=== PATIENT | male | born 1950 | race Caucasian/White ===

== ENCOUNTER → 2019-07-09 | Outpatient (CLI) | payer BC ==
[~2019-07-09] MED LIST: ALBIPROI INH; ALDACTONE; AMIT50 PO; AMLO10 PO; AMOCLA875 PO; ANDROGEL1.25 GM TOP; ANORO ELLIPTA1 EACH INH; ASPI325; ASPI325EC PO; ASPI81CH; ASPI81CH PO; ATEN25; BENAML10/2 PO; BENAML20/5; BENAML20/5 PO; CARV25 PO; CARV6.25 PO; CIPRODEX UD; CLOP75 PO; COMBIVENT RESPIM4 GM INH; CYCL10; CYCL10 PO; Cialis5 MG PO; ESOM20 PO; EZET10-40 PO; EZETIMIBE-SIMV1 EACH; FINA5 PO; GABA300 PO; Hair, Skin & N1 EACH; IBUP800 PO; LOTREL PO; Lotrel 5-40 MG1 EACH PO; Lyrica75 MG PO; METF500 PO; METF500C PO; NITR.4SL; PANT40 PO; POLY500; QNASL8.7 GM; RANI150; RANI150 PO; ROSU10TA; SOLI5 PO; TADA10TA; TAMS.4ER; TAMS.4ER PO; TESTTP TOP; Triamcinolone A15 G3 TOP; VESICARE PO; VITB100; VYTORIN; VYTORIN PO; Viagra100 MG; ZANTAC PO; ZOLP10 PO; [UNRECOGNIZED DRUG - REMARK]
== END | disposition home or self-care (01) ==
LOC: LAB 12:40 → LAB SHORT 12:40
DX: M54.5 Low back pain (principal)
CPT/HCPCS: 87077; 87086; 87186

== ENCOUNTER → 2019-09-04 | Outpatient (CLI) | payer BC | DX: R35.0 Frequency of micturition (principal); R82.998 Other abnormal findings in urine ==

== ENCOUNTER → 2020-08-12 | Outpatient (CLI) | payer BC ==
[2020-08-13 12:38] LABS: C DIFFICILE DNA NEGATIVE (Negative)
== END ==
LOC: LAB SHORT 12:30
PROVIDERS: Family Medicine
DX: R19.7 Diarrhea, unspecified (principal)
CPT/HCPCS: 87015; 87045; 87046; 87205; 87493; 87899

== ENCOUNTER 2020-10-14 15:41 | Emergency (ER) | payer BC ==
[~2020-10-14] VITALS: Ht 177.8 cm; Wt 102.1 kg
[~2020-10-14 15:41] MED LIST changes: +EZETIMIBE-SIMV1 EAC4 PO; -EZETIMIBE-SIMV1 EACH
[2020-10-14 16:29] LABS: BASOPHILS ABSOLUTE AUTO 0.08 K/mm3 (0.00-0.23); BASOPHILS PERCENT AUTO 1 % (0-2); EOSINOPHILS ABSOLUTE AUTO 0.27 K/mm3 (0.00-0.68); EOSINOPHILS PERCENT AUTO 3 % (0-6); Hematocrit 44.1 % (37.0-53.0); Hemoglobin 14.7 g/dL (13.5-17.5); IMMATURE GRAN PERCENT AUTO 1 % (0-1); LYMPHOCYTES ABSOLUTE AUTO 2.93 K/mm3 (0.84-5.20); LYMPHOCYTES PERCENT AUTO 29 % (21-46); MONOCYTES ABSOLUTE AUTO 1.05 K/mm3 (0.16-1.47); MONOCYTES PERCENT AUTO 11 % (4-13); Mean Corpuscular HGB 30.1 pg (26.0-34.0); Mean Corpuscular HGB Conc 33.3 g/dL (31.5-36.5); Mean Corpuscular Volume 90 fL (80-100); NEUTROPHILS ABSOLUTE AUTO 5.54 K/mm3 (1.96-9.15); NEUTROPHILS PERCENT AUTO 56 % (41-73); RDW Coefficient Variation 13.7 % (11.7-14.2); Red Blood Cell Count 4.89 M/mm3 (4.30-5.90); White Blood Cell Count 9.97 K/mm3 (4.00-11.30)
[2020-10-14 16:36] LABS: Platelet Count 174 K/mm3 (150-400)
[2020-10-14 17:06] LABS: International Normalized Ratio 1.09; Prothrombin Time Results 11.7 Sec (9.7-11.5)
[2020-10-14 17:31] LABS: Troponin I <0.015 ng/mL (0.000-0.040)
[2020-10-14 17:34] LABS: Alanine Aminotransfer (ALT/SGP 34 U/L (12-78); Albumin, Blood 3.6 g/dL (3.4-5.0); Albumin/Globulin Ratio 0.9 (0.8-1.8); Alk Phos 72 U/L (50-136); Anion Gap 8 mmol/L (6-16); Aspartate Aminotrans (AST/SGOT 32 U/L (12-37); Bilirubin, Total 0.5 mg/dL (0.1-1.0); Blood Urea Nitrogen 13 mg/dL (8-24); Bun/Creatinine Ratio 13.9 (12.0-20.0); CO2, Blood 22 mmol/L (21-32); Calcium, Blood 9.5 mg/dL (8.5-10.1); Chloride, Blood 108 mmol/L (98-108); Creatinine, Blood 0.94 mg/dL (0.60-1.20); Globulin, Blood 4.1 g/dL (2.2-4.0); Glomerular Filtration Rate >60 (60-); Glucose, Blood 97 mg/dL (70-99); Potassium, Blood 4.2 mmol/L (3.5-5.5); Sodium, Blood 138 mmol/L (136-145); Total Protein, Blood 7.7 g/dL (6.4-8.2)
== END 2020-10-14 18:51 | disposition home or self-care (01) ==
LOC: ER 15:41
PROVIDERS: Physician Assistant
DX: R00.2 Palpitations (principal); J44.9 Chronic obstructive pulmonary disease, unspecified; E11.42 Type 2 diabetes mellitus with diabetic polyneuropathy; E78.5 Hyperlipidemia, unspecified; I10 Essential (primary) hypertension; K21.9 Gastro-esophageal reflux disease without esophagitis; F17.210 Nicotine dependence, cigarettes, uncomplicated; Z79.899 Other long term (current) drug therapy; Z79.82 Long term (current) use of aspirin
CPT/HCPCS: 36415; 71046; 80053; 83735; 83880; 84484; 85025; 85610; 93005; 93010; 99284-25

== ENCOUNTER 2021-01-26 19:18 | Emergency (ER) | payer BC ==
[~2021-01-26] VITALS: Ht 177.8 cm; Wt 102.1 kg
[2021-01-26 21:49] LABS: BASOPHILS ABSOLUTE AUTO 0.04 K/mm3 (0.00-0.23); BASOPHILS PERCENT AUTO 1 % (0-2); EOSINOPHILS ABSOLUTE AUTO 0.27 K/mm3 (0.00-0.68); EOSINOPHILS PERCENT AUTO 4 % (0-6); Hematocrit 44.3 % (37.0-53.0); Hemoglobin 15.2 g/dL (13.5-17.5); IMMATURE GRAN ABSOLUTE AUTO 0.02 K/mm3 (0.00-0.10); IMMATURE GRAN PERCENT AUTO 0 % (0-1); LYMPHOCYTES ABSOLUTE AUTO 1.82 K/mm3 (0.84-5.20); LYMPHOCYTES PERCENT AUTO 23 % (21-46); MONOCYTES ABSOLUTE AUTO 1.18 K/mm3 (0.16-1.47); MONOCYTES PERCENT AUTO 15 % (4-13); Mean Corpuscular HGB 30.6 pg (26.0-34.0); Mean Corpuscular HGB Conc 34.3 g/dL (31.5-36.5); Mean Corpuscular Volume 89 fL (80-100); Mean Platelet Volume 9.5 fL (9.1-12.4); NEUTROPHILS ABSOLUTE AUTO 4.46 K/mm3 (1.96-9.15); NEUTROPHILS PERCENT AUTO 57 % (41-73); Platelet Count 234 K/mm3 (150-400); RDW Coefficient Variation 13.8 % (11.7-14.2); RDW Standard Deviation 44.8 fL (35.1-46.3); Red Blood Cell Count 4.97 M/mm3 (4.30-5.90); White Blood Cell Count 7.79 K/mm3 (4.00-11.30)
[2021-01-26 22:13] LABS: Troponin I <0.015 ng/mL (0.000-0.040)
[2021-01-26 22:15] LABS: Alanine Aminotransfer (ALT/SGP 40 U/L (12-78); Albumin, Blood 3.4 g/dL (3.4-5.0); Albumin/Globulin Ratio 0.7 (0.8-1.8); Alk Phos 70 U/L (50-136); Anion Gap 6 mmol/L (6-16); Aspartate Aminotrans (AST/SGOT 32 U/L (12-37); Bilirubin, Total 0.3 mg/dL (0.1-1.0); Blood Urea Nitrogen 19 mg/dL (8-24); Bun/Creatinine Ratio 18.6 (12.0-20.0); CO2, Blood 25 mmol/L (21-32); Calcium, Blood 9.4 mg/dL (8.5-10.1); Chloride, Blood 106 mmol/L (98-108); Creatinine, Blood 1.02 mg/dL (0.60-1.20); Globulin, Blood 4.6 g/dL (2.2-4.0); Glomerular Filtration Rate >60 (60-); Glucose, Blood 168 mg/dL (70-99); Sodium, Blood 137 mmol/L (136-145)
[2021-01-26] MEDS ORDERED: TRELEGY ELLIPT1 EACH INH (23:15)
[2021-01-27] MEDS ORDERED: PRED20 PO (01:23)
[2021-01-27] MEDS ORDERED: AZIT250 PO (01:23)
== END 2021-01-27 01:53 | disposition home or self-care (01) ==
LOC: ER 19:18
PROVIDERS: Physician Assistant; Student in an Organized Health Care Education/Training Program
DX: J44.1 Chronic obstructive pulmonary disease with (acute) exacerbation (principal); J06.9 Acute upper respiratory infection, unspecified; E78.5 Hyperlipidemia, unspecified; E11.42 Type 2 diabetes mellitus with diabetic polyneuropathy; I10 Essential (primary) hypertension; I25.2 Old myocardial infarction; K21.9 Gastro-esophageal reflux disease without esophagitis; F17.210 Nicotine dependence, cigarettes, uncomplicated; Z79.82 Long term (current) use of aspirin; Z79.899 Other long term (current) drug therapy
CPT/HCPCS: 36415; 71046; 80053; 84484; 85025; 93005; 93010; 94640; 99285-25; A9270; J7512

== ENCOUNTER → 2021-03-23 | Outpatient (CLI) | payer BC ==
[~2021-03-23] MED LIST changes: +AMLODIPINE BES2.5 MG PO; +AZIT250 PO; +BENAZEPRIL HCL20 M4 PO; +CEFD300 PO; +HYDCHL25 PO; +PRED20 PO; +TRELEGY ELLIPT1 EACH INH; +Zithromax250 MG PO
== END | disposition home or self-care (01) ==
LOC: LAB 14:00 → LAB SHORT 14:00
DX: R35.0 Frequency of micturition (principal)
CPT/HCPCS: 87086

== ENCOUNTER 2021-03-24 19:24 | Emergency (ER) | payer BC ==
[~2021-03-24] VITALS: Ht 177.8 cm; Wt 102.1 kg
[~2021-03-24 19:24] MED LIST changes: -AMLODIPINE BES2.5 MG PO; -BENAZEPRIL HCL20 M4 PO; -CEFD300 PO; -HYDCHL25 PO; -Zithromax250 MG PO
[2021-03-24] MEDS ORDERED: AMLODIPINE BES2.5 MG PO (19:54)
[2021-03-24] MEDS ORDERED: HYDCHL25 PO (19:55)
[2021-03-24] MEDS ORDERED: BENAZEPRIL HCL20 M4 PO (19:55)
[2021-03-24 19:57] LABS: BASOPHILS ABSOLUTE AUTO 0.05 K/mm3 (0.00-0.23); BASOPHILS PERCENT AUTO 0 % (0-2); EOSINOPHILS ABSOLUTE AUTO 0.04 K/mm3 (0.00-0.68); EOSINOPHILS PERCENT AUTO 0 % (0-6); Hematocrit 38.5 % (37.0-53.0); Hemoglobin 12.9 g/dL (13.5-17.5); IMMATURE GRAN ABSOLUTE AUTO 0.07 K/mm3 (0.00-0.10); IMMATURE GRAN PERCENT AUTO 0 % (0-1); LYMPHOCYTES ABSOLUTE AUTO 1.82 K/mm3 (0.84-5.20); LYMPHOCYTES PERCENT AUTO 11 % (21-46); MONOCYTES ABSOLUTE AUTO 1.77 K/mm3 (0.16-1.47); MONOCYTES PERCENT AUTO 11 % (4-13); Mean Corpuscular HGB 30.3 pg (26.0-34.0); Mean Corpuscular HGB Conc 33.5 g/dL (31.5-36.5); Mean Corpuscular Volume 90 fL (80-100); Mean Platelet Volume 9.5 fL (9.1-12.4); NEUTROPHILS ABSOLUTE AUTO 12.75 K/mm3 (1.96-9.15); NEUTROPHILS PERCENT AUTO 77 % (41-73); Platelet Count 232 K/mm3 (150-400); RDW Coefficient Variation 13.8 % (11.7-14.2); RDW Standard Deviation 46.3 fL (35.1-46.3); Red Blood Cell Count 4.26 M/mm3 (4.30-5.90)
[2021-03-24 20:18] LABS: Troponin I <0.015 ng/mL (0.000-0.040)
[2021-03-24 20:26] LABS: Alanine Aminotransfer (ALT/SGP 26 U/L (12-78); Albumin, Blood 2.8 g/dL (3.4-5.0); Albumin/Globulin Ratio 0.7 (0.8-1.8); Alk Phos 57 U/L (50-136); Anion Gap 8 mmol/L (6-16); Aspartate Aminotrans (AST/SGOT 33 U/L (12-37); Bilirubin, Total 0.8 mg/dL (0.1-1.0); Blood Urea Nitrogen 20 mg/dL (8-24); Bun/Creatinine Ratio 19.4 (12.0-20.0); CO2, Blood 23 mmol/L (21-32); Calcium, Blood 8.8 mg/dL (8.5-10.1); Chloride, Blood 104 mmol/L (98-108); Creatinine, Blood 1.03 mg/dL (0.60-1.20); Globulin, Blood 4.1 g/dL (2.2-4.0); Glomerular Filtration Rate >60 (60-); Glucose, Blood 117 mg/dL (70-99); Potassium, Blood 4.4 mmol/L (3.5-5.5); Sodium, Blood 135 mmol/L (136-145); Total Protein, Blood 6.9 g/dL (6.4-8.2)
[2021-03-24 21:07] LABS: Influenza A, PCR NEGATIVE (NEGATIVE); Influenza B, PCR NEGATIVE (NEGATIVE); Resp Syncytial Virus, PCR NEGATIVE (NEGATIVE); SARS-Cov-2 (COVID-19) PCR, MMC NEGATIVE (NEGATIVE)
[2021-03-24] MEDS ORDERED: CEFD300 PO (21:36)
[2021-03-24] MEDS ORDERED: Zithromax250 MG PO (21:36)
== END 2021-03-24 22:03 | disposition home or self-care (01) ==
LOC: ER 19:24
PROVIDERS: Emergency Medicine
DX: J44.0 Chronic obstructive pulmonary disease with (acute) lower respiratory infection (principal); J18.9 Pneumonia, unspecified organism; I10 Essential (primary) hypertension; E78.5 Hyperlipidemia, unspecified; E11.42 Type 2 diabetes mellitus with diabetic polyneuropathy; N40.0 Benign prostatic hyperplasia without lower urinary tract symptoms; K21.9 Gastro-esophageal reflux disease without esophagitis; I25.2 Old myocardial infarction; D72.829 Elevated white blood cell count, unspecified; F17.200 Nicotine dependence, unspecified, uncomplicated; Z79.899 Other long term (current) drug therapy; Z79.02 Long term (current) use of antithrombotics/antiplatelets; Z79.82 Long term (current) use of aspirin
CPT/HCPCS: 0241U; 36415; 71045; 80053; 83605; 84145; 84484; 85025; 93005; 93010; 96365; 96368; 96375; 99285-25; J0456; J0696; J1885; J7050

== ENCOUNTER 2023-03-30 15:43 | Inpatient (IN) | payer BC, MEDICARE ==
[~2023-03-30] VITALS: Ht 177.8 cm; Wt 103.5 kg
[~2023-03-30 15:43] MED LIST changes: +AMLODIPINE BES2.5 MG PO; +BENAZEPRIL HCL20 M4 PO; +CEFD300 PO; +Carvedilol12.5 MG PO; +HYDCHL25 PO; -Hair, Skin & N1 EACH; +Hair, Skin & N1 EACH PO; +Zithromax250 MG PO
[2023-03-30] MEDS ORDERED: PRED20 PO (16:08)
[2023-03-30] MEDS ORDERED: LEVFLO500 PO (16:08)
[2023-03-30 17:00] LABS: BASOPHILS ABSOLUTE AUTO 0.01 K/mm3 (0.00-0.23); BASOPHILS PERCENT AUTO 0 % (0-2); EOSINOPHILS ABSOLUTE AUTO 0.01 K/mm3 (0.00-0.68); EOSINOPHILS PERCENT AUTO 0 % (0-6); Hematocrit 42.7 % (37.0-53.0); Hemoglobin 14.3 g/dL (13.5-17.5); IMMATURE GRAN ABSOLUTE AUTO 0.04 K/mm3 (0.00-0.10); IMMATURE GRAN PERCENT AUTO 0 % (0-1); LYMPHOCYTES ABSOLUTE AUTO 1.04 K/mm3 (0.84-5.20); LYMPHOCYTES PERCENT AUTO 11 % (21-46); MONOCYTES ABSOLUTE AUTO 0.19 K/mm3 (0.16-1.47); MONOCYTES PERCENT AUTO 2 % (4-13); Mean Corpuscular HGB 30.4 pg (26.0-34.0); Mean Corpuscular HGB Conc 33.5 g/dL (31.5-36.5); Mean Corpuscular Volume 91 fL (80-100); NEUTROPHILS ABSOLUTE AUTO 8.16 K/mm3 (1.96-9.15); NEUTROPHILS PERCENT AUTO 86 % (41-73); Platelet Count 211 K/mm3 (150-400); RDW Coefficient Variation 13.2 % (11.7-14.2); RDW Standard Deviation 43.7 fL (35.1-46.3); Red Blood Cell Count 4.71 M/mm3 (4.30-5.90); White Blood Cell Count 9.45 K/mm3 (4.00-11.30)
[2023-03-30 17:12] LABS: Albumin, Blood 3.3 g/dL (3.4-5.0); Albumin/Globulin Ratio 0.9 (0.8-1.8); Bilirubin, Total 0.3 mg/dL (0.1-1.0); Bun/Creatinine Ratio 24.6 (12.0-20.0); Calcium, Blood 9.4 mg/dL (8.5-10.1); Creatinine, Blood 0.98 mg/dL (0.60-1.20); Globulin, Blood 3.8 g/dL (2.2-4.0); Potassium, Blood 4.8 mmol/L (3.5-5.5); Total Protein, Blood 7.1 g/dL (6.4-8.2)
[2023-03-30 23:05] VITALS: BP 115/79
[2023-03-30 23:10] LABS: International Normalized Ratio 1.16; Prothrombin Time Results 12.1 Sec (9.7-11.5)
[2023-03-31] VITALS (14 sets, daily range): BP systolic 105–133; BP diastolic 54–88
[2023-03-31 01:47] LABS: Bun/Creatinine Ratio 26.5 (12.0-20.0); Calcium, Blood 8.9 mg/dL (8.5-10.1); Creatinine, Blood 0.91 mg/dL (0.60-1.20); Potassium, Blood 4.4 mmol/L (3.5-5.5)
--- NOTE | 2023-03-31 05:39 | NUR ---
SECOND HAND SUMMARY THE PT HAS REMAINED ALERT AND ORIENTED THIS SHIFT COMMUNICATING [facility] W STAFF. THE PT HAS DENIED ANY CHEST PAIN OR PRESSURE THIS SHIFT. PT'S MONITOR HAS SHOWN AFIB 90'-120 W OCCASIONAL VERY BRIEF RUNS UP TO 140. PT'S BP WNL AND STABLE. SPO2 >90% ON RM AIR. PT ON HEPARIN GTT UNINTERUPTED ALL SHIFT. PT USING THE CALL LIGHT TO MAKE NEEDS KNOW. PT SLEEPING COMFORTABLY FOR MOST OF THE NIGHT ON BED IN LOWEST POSITION. WILL REPORT TO ONCOMING RN. PT NPO SINCE MIDNIGHT FOR POSIIBLE PROCEDURES EXCEPT FOR SMALL DRINK OF WATER W 0600 MEDS. WILL REPORT TO ONCOMING RN.
--- NOTE | 2023-03-31 18:11 | NUR ---
SHIFT SUMMARY PT A&OX4, ABLE TO MAKE NEEDS KNOWN. SP02>90% ON RA, DENIES SOB. TELEMETRY SHOWS AFIB, HR 90'S-120'S. C/O OF CP 1 TO 4 DEPENDING ON EXERTION. HEPARIN DC'D THIS AM. MD BAUER IN ROOM THIS AM TO CONSULT. PT EDUCATED ON MEDICATION CHANGES. ECHO IN ROOM, SEE RESULTS. PT TO COLD MEAT COOK WITH MD BAUER FOR CESAR/CARDIOVERSION THIS AFTERNOON. CARDIOVERSION UNSUCCESSFUL, PT REMAINS IN AFIB. AMIO GTT STARTED PER EMAR, CURRENTLY INFUSING. USES URINAL TO VOID. CRISTINA HU, IN ROOM MOST OF SHIFT. PT SITTING UP IN BED EATING DINNER. CALL LIGHT IN REACH.
--- NOTE | 2023-03-31 21:21 | NUR ---
ASSUMPTION OF CARE AFTER RECEIVING REPORT FROM CITLALLI HINTON, THIS RN ASSUMED CARE AT APPROX 1915. PATIENT IS ALERT AND ORIENTED X4. FAMILY AT BEDSIDE DURING INITIAL ENCOUNTER. TELEMETRY SHOWING AFIB 80's-90's. AMIO GTT INFUSING PER EMAR. SWITCHED FROM 33.3 TO 16.7ML/HR. BP STABLE. REPORTS CHEST PAIN 05/01 AT THIS TIME. ON ROOM AIR, SATS >90%. DENIES SHORTNESS OF BREATH AT REST. PATIENT INDEPENDENT IN ROOM, USES CALL LIGHT NEEDED. VOIDING. CALL LIGHT IN REACH.
[2023-04-01] VITALS (12 sets, daily range): BP systolic 102–137; BP diastolic 49–100
[2023-04-01 04:00] LABS: BASOPHILS ABSOLUTE AUTO 0.06 K/mm3 (0.00-0.23); BASOPHILS PERCENT AUTO 1 % (0-2); EOSINOPHILS ABSOLUTE AUTO 0.17 K/mm3 (0.00-0.68); EOSINOPHILS PERCENT AUTO 2 % (0-6); Hematocrit 42.5 % (37.0-53.0); Hemoglobin 14.2 g/dL (13.5-17.5); IMMATURE GRAN ABSOLUTE AUTO 0.03 K/mm3 (0.00-0.10); IMMATURE GRAN PERCENT AUTO 0 % (0-1); LYMPHOCYTES ABSOLUTE AUTO 2.61 K/mm3 (0.84-5.20); LYMPHOCYTES PERCENT AUTO 31 % (21-46); MONOCYTES ABSOLUTE AUTO 0.95 K/mm3 (0.16-1.47); MONOCYTES PERCENT AUTO 11 % (4-13); Mean Corpuscular HGB 30.3 pg (26.0-34.0); Mean Corpuscular HGB Conc 33.4 g/dL (31.5-36.5); Mean Corpuscular Volume 91 fL (80-100); Mean Platelet Volume 9.6 fL (9.1-12.4); NEUTROPHILS ABSOLUTE AUTO 4.63 K/mm3 (1.96-9.15); NEUTROPHILS PERCENT AUTO 55 % (41-73); Platelet Count 197 K/mm3 (150-400); RDW Coefficient Variation 13.8 % (11.7-14.2); RDW Standard Deviation 44.7 fL (35.1-46.3); Red Blood Cell Count 4.69 M/mm3 (4.30-5.90); White Blood Cell Count 8.45 K/mm3 (4.00-11.30)
[2023-04-01 04:29] LABS: Bun/Creatinine Ratio 23.1 (12.0-20.0); Calcium, Blood 9.2 mg/dL (8.5-10.1); Creatinine, Blood 1.08 mg/dL (0.60-1.20); Potassium, Blood 4.4 mmol/L (3.5-5.5)
--- NOTE | 2023-04-01 05:17 | NUR ---
SHIFT SUMMARY NO ACUTE CHANGES SINCE PREVIOUS ASSUMPTION OF CARE NOTE. PATIENT SLEPT THROUGHOUT SHIFT, EASILY AROUSABLE TO VERBAL STIMULI. VSS. TELEMETRY CONTINUING TO SHOW AFIB 80's-90's. AMIO GTT INFUSING AT 16.7ML/HR. BP STABLE. PLACED ON 2L VIA NASAL CANNULA WHILE SLEEPING DOES DESAT TO 88-90% ON ROOM AIR. CURRENT SAT >92%. USES URINAL INDEPENDENTLY. VOIDING. NO BM THIS SHIFT. REPOSITIONING HIMSELF IN BED WITHOUT ASSIST. CALL LIGHT IN REACH. WILL REPORT TO ONCOMING RN.
--- NOTE | 2023-04-01 16:25 | NUR ---
Shift Summary Pt a&ox4. Sp02>90% on ra. Telemetry shows Afib, hr mostly 80's-90's, touches 110's with ambulation. Pt c/o of 1/10 cp/tightness. Amioderone infused this shift, off this afternoon. Entresto started this afternoon per emar. MD Major in room this am to assess. Plan for NPO at midnight for cardioversion tomorrow. Pt c/o of chronic back pain. States takes advil daily. Call placed to MD Washburn. MD Washburn w/ orders for Advil. Pt used urinal to void. No bm this shift. Pt ambulated around u hallways multiple times during shift with daughter, Isa. Pt able to shower this am. Powerglide placed in RONALD. Pt sitting in chair, call light in reach.
--- NOTE | 2023-04-01 21:58 | NUR ---
ASSUMPTION OF CARE AFTER RECEIVING REPORT FROM CILTALLI HINTON, THIS RN ASSUMED CARE AT APPROX 1915. PATIENT ALERT, SITTING UP IN BED WATCHING TV. IS ALERT AND ORIENTED X4. COOPERATIVE WITH CARE, RECEPTIVE TO EDUCATION. ABLE TO COMMUNICATE NEEDS EFFECTIVELY. TELEMETRY SHOWING AFIB 80's-90's. BP STABLE. REPORTS CHEST PAIN 05/01. CURRENTLY ON ROOM AIR, SATS >92%. WEARS 2L VIA NASAL CANNULA WHILE SLEEPING. REPORTS NO SHORTNESS OF BREATH WHILE AT REST. RR 18-22. IS A STAND BY ASSIST IN ROOM. USES URINAL INDEPENDENTLY. CALL LIGHT IN REACH.
[2023-04-02] VITALS (15 sets, daily range): BP systolic 92–127; BP diastolic 58–83
[2023-04-02 03:50] LABS: BASOPHILS ABSOLUTE AUTO 0.05 K/mm3 (0.00-0.23); BASOPHILS PERCENT AUTO 1 % (0-2); EOSINOPHILS ABSOLUTE AUTO 0.29 K/mm3 (0.00-0.68); EOSINOPHILS PERCENT AUTO 3 % (0-6); Hemoglobin 15.1 g/dL (13.5-17.5); IMMATURE GRAN ABSOLUTE AUTO 0.03 K/mm3 (0.00-0.10); IMMATURE GRAN PERCENT AUTO 0 % (0-1); LYMPHOCYTES ABSOLUTE AUTO 1.91 K/mm3 (0.84-5.20); LYMPHOCYTES PERCENT AUTO 22 % (21-46); MONOCYTES ABSOLUTE AUTO 1.22 K/mm3 (0.16-1.47); MONOCYTES PERCENT AUTO 14 % (4-13); Mean Corpuscular HGB 29.8 pg (26.0-34.0); Mean Corpuscular HGB Conc 33.6 g/dL (31.5-36.5); Mean Corpuscular Volume 89 fL (80-100); Mean Platelet Volume 9.7 fL (9.1-12.4); NEUTROPHILS ABSOLUTE AUTO 5.29 K/mm3 (1.96-9.15); NEUTROPHILS PERCENT AUTO 60 % (41-73); Platelet Count 216 K/mm3 (150-400); RDW Coefficient Variation 13.4 % (11.7-14.2); RDW Standard Deviation 43.6 fL (35.1-46.3); Red Blood Cell Count 5.06 M/mm3 (4.30-5.90); White Blood Cell Count 8.79 K/mm3 (4.00-11.30)
[2023-04-02 04:09] LABS: Bun/Creatinine Ratio 24.6 (12.0-20.0); Calcium, Blood 9.4 mg/dL (8.5-10.1); Creatinine, Blood 1.18 mg/dL (0.60-1.20); Magnesium, Blood 2.1 mg/dL (1.6-2.4); Potassium, Blood 4.2 mmol/L (3.5-5.5)
--- NOTE | 2023-04-02 04:13 | NUR ---
SHIFT SUMMARY NO ACUTE CHANGES SINCE ASSUMPTION OF CARE NOTE. PATIENT SLEPT THROUGHOUT SHIFT, EASILY AROUSABLE TO VERBAL STIMULI. ABLE TO REPOSITION HIMSELF IN BED INDEPENDENTLY. TELEMETRY SHOWING AFIB 80's-90's. BP STABLE. HAS BEEN NPO SINCE 2329 FOR PLANNED CARDIOVERSION TODAY. NO INCREASE IN CHEST PAIN, REMAINS 05/01. ORDERED EKG PERFORMED, LOCATED IN CHART. PLACED ON 2L VIA NASAL CANNULA WHILE SLEEPING, SATS >92%. USES URINAL INDEPENDENTLY. VOIDING. NO BM THIS SHIFT. CALL LIGHT IN REACH. WILL REPORT TO ONCOMING RN.
--- NOTE | 2023-04-02 14:16 | NUR ---
PT TOLERATED CARDIOVERSION WELL. PT DENIES CP. CALL LIGHT IN REACH. PT ON ROOM AIR NOW. DR BAUER RETURNED TO ROOM POST CARDIOVERSION TO TALK WITH PT.
[2023-04-02] MEDS ORDERED: AMIODARONE HCL400 M2 PO (15:26)
[2023-04-02] MEDS ORDERED: PACERONE PO (15:26)
[2023-04-02] MEDS ORDERED: JARDIANCE10 MG PO (15:27)
[2023-04-02] MEDS ORDERED: ATOR10 PO (15:27)
[2023-04-02] MEDS ORDERED: Amiodarone HCl200 MG PO (15:27)
[2023-04-02] MEDS ORDERED: XARELTO20 MG PO (15:28)
[2023-04-02] MEDS ORDERED: EZET10 PO (15:28)
[2023-04-02] MEDS ORDERED: ENTRESTO 24 MG1 EACH PO (15:28)
== END 2023-04-02 18:00 | disposition home or self-care (01) | DRG 308 ==
LOC: ER 15:43 → PCU 15:44
PROVIDERS: Hospitalist; Internal Medicine Cardiovascular Disease; Physician Assistant; ADMIT Internal Medicine
PROC: 3E02340 Introduction of Influenza Vaccine into Muscle, Percutaneous Approach (ICD-10-PCS; 2023-03-30)
PROC: 5A2204Z Restoration of Cardiac Rhythm, Single (ICD-10-PCS; principal; 2023-03-31)
DX: I48.91 Unspecified atrial fibrillation (principal); I50.23 Acute on chronic systolic (congestive) heart failure; J18.9 Pneumonia, unspecified organism; J44.0 Chronic obstructive pulmonary disease with (acute) lower respiratory infection; I25.10 Atherosclerotic heart disease of native coronary artery without angina pectoris; F17.210 Nicotine dependence, cigarettes, uncomplicated; E09.42 Drug or chemical induced diabetes mellitus with neurological complications with diabetic polyneuropathy; T38.0X5A Adverse effect of glucocorticoids and synthetic analogues, initial encounter; E66.9 Obesity, unspecified; E78.5 Hyperlipidemia, unspecified; N40.0 Benign prostatic hyperplasia without lower urinary tract symptoms; I11.0 Hypertensive heart disease with heart failure; K21.9 Gastro-esophageal reflux disease without esophagitis; R07.89 Other chest pain; I70.0 Atherosclerosis of aorta; R19.7 Diarrhea, unspecified; F15.11 Other stimulant abuse, in remission; I25.2 Old myocardial infarction; Z71.6 Tobacco abuse counseling; Z95.5 Presence of coronary angioplasty implant and graft; Z68.33 Body mass index [BMI] 33.0-33.9, adult; Z85.828 Personal history of other malignant neoplasm of skin; Z23 Encounter for immunization
CPT/HCPCS: 36415; 71045; 80048; 80053; 82947; 83036; 83735; 83880; 84443; 84484; 85025; 85610; 85730; 92960; 93005; 93010; 93312; 93325; 94640; 94664; 94760; 94762; 96365; 96366; 96375; 96376; 99285-25; A9270; C8929; G0008; G0378; J0282; J1644; J2405; J2704; J7030; J7060; Q2036; Q9957

== ENCOUNTER 2023-04-17 14:11 | Emergency (ER) | payer BC ==
[~2023-04-17] VITALS: Ht 177.8 cm; Wt 102.1 kg
[~2023-04-17 14:11] MED LIST changes: +AMIODARONE HCL400 M2 PO; +ATOR10 PO; +Amiodarone HCl200 MG PO; +ENTRESTO 24 MG1 EACH PO; +EZET10 PO; +JARDIANCE10 MG PO; +LEVFLO500 PO; +PACERONE PO; +XARELTO20 MG PO
[2023-04-17 14:15] VITALS: BP 157/57
[2023-04-17 14:46] LABS: BASOPHILS ABSOLUTE AUTO 0.04 K/mm3 (0.00-0.23); BASOPHILS PERCENT AUTO 1 % (0-2); EOSINOPHILS ABSOLUTE AUTO 0.16 K/mm3 (0.00-0.68); EOSINOPHILS PERCENT AUTO 2 % (0-6); Hematocrit 44.7 % (37.0-53.0); IMMATURE GRAN ABSOLUTE AUTO 0.02 K/mm3 (0.00-0.10); IMMATURE GRAN PERCENT AUTO 0 % (0-1); LYMPHOCYTES ABSOLUTE AUTO 1.96 K/mm3 (0.84-5.20); LYMPHOCYTES PERCENT AUTO 25 % (21-46); MONOCYTES ABSOLUTE AUTO 1.03 K/mm3 (0.16-1.47); MONOCYTES PERCENT AUTO 13 % (4-13); Mean Corpuscular HGB 30.1 pg (26.0-34.0); Mean Corpuscular HGB Conc 33.6 g/dL (31.5-36.5); Mean Corpuscular Volume 90 fL (80-100); Mean Platelet Volume 9.7 fL (9.1-12.4); NEUTROPHILS ABSOLUTE AUTO 4.59 K/mm3 (1.96-9.15); NEUTROPHILS PERCENT AUTO 59 % (41-73); Platelet Count 185 K/mm3 (150-400); RDW Coefficient Variation 13.9 % (11.7-14.2); RDW Standard Deviation 45.2 fL (35.1-46.3); Red Blood Cell Count 4.99 M/mm3 (4.30-5.90)
[2023-04-17 15:12] LABS: Albumin, Blood 3.3 g/dL (3.4-5.0); Albumin/Globulin Ratio 0.8 (0.8-1.8); Bilirubin, Total 0.3 mg/dL (0.1-1.0); Bun/Creatinine Ratio 21.1 (12.0-20.0); Calcium, Blood 9.2 mg/dL (8.5-10.1); Creatinine, Blood 0.95 mg/dL (0.60-1.20); Potassium, Blood 4.9 mmol/L (3.5-5.5); Total Protein, Blood 7.3 g/dL (6.4-8.2)
== END 2023-04-17 16:29 | disposition home or self-care (01) ==
LOC: ER 14:11
PROVIDERS: Student in an Organized Health Care Education/Training Program
DX: R07.89 Other chest pain (principal); Z79.899 Other long term (current) drug therapy; J44.9 Chronic obstructive pulmonary disease, unspecified; E78.5 Hyperlipidemia, unspecified; E11.9 Type 2 diabetes mellitus without complications; K21.9 Gastro-esophageal reflux disease without esophagitis; I10 Essential (primary) hypertension; I25.2 Old myocardial infarction; Z87.891 Personal history of nicotine dependence
CPT/HCPCS: 71046; 80053; 83880; 84484; 85025; 93005; 93010; 99285-25

== ENCOUNTER 2023-08-29 20:12 | Emergency (ER) | payer BC ==
[~2023-08-29] VITALS: Ht 177.8 cm; Wt 104.3 kg
[2023-08-29 21:15] VITALS: BP 139/49
== END 2023-08-29 21:20 | disposition home or self-care (01) ==
LOC: ER 20:12
DX: R07.9 Chest pain, unspecified (principal); Z79.899 Other long term (current) drug therapy; F17.210 Nicotine dependence, cigarettes, uncomplicated; J44.9 Chronic obstructive pulmonary disease, unspecified; E78.5 Hyperlipidemia, unspecified; E11.40 Type 2 diabetes mellitus with diabetic neuropathy, unspecified; I11.0 Hypertensive heart disease with heart failure; K21.9 Gastro-esophageal reflux disease without esophagitis; I50.9 Heart failure, unspecified

== ENCOUNTER 2023-12-15 10:54 | Emergency (ER) | payer BC ==
[~2023-12-15] VITALS: Ht 177.8 cm; Wt 102.1 kg
[2023-12-15] MEDS ORDERED: Nitrofurantoin100 M1 PO (11:16)
[2023-12-15 11:23] LABS: BASOPHILS ABSOLUTE AUTO 0.03 K/mm3 (0.00-0.23); BASOPHILS PERCENT AUTO 0 % (0-2); EOSINOPHILS ABSOLUTE AUTO 0.39 K/mm3 (0.00-0.68); EOSINOPHILS PERCENT AUTO 4 % (0-6); Hematocrit 46.2 % (37.0-53.0); Hemoglobin 15.1 g/dL (13.5-17.5); IMMATURE GRAN ABSOLUTE AUTO 0.02 K/mm3 (0.00-0.10); IMMATURE GRAN PERCENT AUTO 0 % (0-1); LYMPHOCYTES ABSOLUTE AUTO 1.51 K/mm3 (0.84-5.20); LYMPHOCYTES PERCENT AUTO 17 % (21-46); MONOCYTES PERCENT AUTO 9 % (4-13); Mean Corpuscular HGB Conc 32.7 g/dL (31.5-36.5); Mean Corpuscular Volume 86 fL (80-100); Mean Platelet Volume 9.2 fL (9.1-12.4); NEUTROPHILS ABSOLUTE AUTO 6.21 K/mm3 (1.96-9.15); NEUTROPHILS PERCENT AUTO 69 % (41-73); Platelet Count 219 K/mm3 (150-400); RDW Coefficient Variation 16.1 % (11.7-14.2); RDW Standard Deviation 50.1 fL (35.1-46.3); Red Blood Cell Count 5.39 M/mm3 (4.30-5.90); White Blood Cell Count 8.96 K/mm3 (4.00-11.30)
[2023-12-15 11:43] LABS: Albumin/Globulin Ratio 0.7 (0.8-1.8); Bilirubin, Total 0.5 mg/dL (0.1-1.0); Bun/Creatinine Ratio 16.2 (12.0-20.0); Creatinine, Blood 1.05 mg/dL (0.60-1.20); Globulin, Blood 4.3 g/dL (2.2-4.0); Potassium, Blood 4.2 mmol/L (3.5-5.5); Total Protein, Blood 7.3 g/dL (6.4-8.2)
[2023-12-15 11:53] LABS: Influenza A, PCR NEGATIVE (NEGATIVE); Influenza B, PCR NEGATIVE (NEGATIVE); Resp Syncytial Virus, PCR NEGATIVE (NEGATIVE); SARS-Cov-2 (COVID-19) PCR, MMC NEGATIVE (NEGATIVE)
[2023-12-15] MEDS ORDERED: MethylPREDNISolone Sod Succ 125 MG Vial IV ONE (12:30)
[2023-12-15] MEDS ORDERED: Ipratropium/Albuterol SulF 2.5-0.5MG/3 ML Amp INH ONE ×2 (12:30)
[2023-12-15 15:00] VITALS: BP 146/61
== END 2023-12-15 15:07 | disposition home or self-care (01) ==
LOC: ER 10:54
PROVIDERS: Physician Assistant
DX: J44.1 Chronic obstructive pulmonary disease with (acute) exacerbation (principal); E11.9 Type 2 diabetes mellitus without complications; E78.5 Hyperlipidemia, unspecified; K21.9 Gastro-esophageal reflux disease without esophagitis; I11.0 Hypertensive heart disease with heart failure; I50.9 Heart failure, unspecified; F17.210 Nicotine dependence, cigarettes, uncomplicated; Z79.51 Long term (current) use of inhaled steroids; Z79.02 Long term (current) use of antithrombotics/antiplatelets; Z79.899 Other long term (current) drug therapy
CPT/HCPCS: 0241U; 71046; 80053; 84484; 85025; 94640; 94664; 96374; 99285-25; J2919

== ENCOUNTER → 2024-02-03 | Outpatient (CLI) | payer BC ==
[~2024-02-03] MED LIST changes: +Nitrofurantoin100 M1 PO
== END ==
LOC: LAB 21:00 → LAB SHORT 21:00
DX: R05.9 Cough, unspecified (principal)
CPT/HCPCS: 87070; 87077; 87186; 87205

== ENCOUNTER 2024-03-29 12:20 | Emergency (ER) | payer BC ==
[~2024-03-29] VITALS: Ht 177.8 cm; Wt 99.8 kg
[2024-03-29 12:53] LABS: BASOPHILS ABSOLUTE AUTO 0.04 K/mm3 (0.00-0.23); BASOPHILS PERCENT AUTO 1 % (0-2); EOSINOPHILS ABSOLUTE AUTO 0.18 K/mm3 (0.00-0.68); EOSINOPHILS PERCENT AUTO 2 % (0-6); Hematocrit 49.6 % (37.0-53.0); Hemoglobin 16.3 g/dL (13.5-17.5); IMMATURE GRAN ABSOLUTE AUTO 0.03 K/mm3 (0.00-0.10); IMMATURE GRAN PERCENT AUTO 0 % (0-1); LYMPHOCYTES ABSOLUTE AUTO 2.22 K/mm3 (0.84-5.20); LYMPHOCYTES PERCENT AUTO 25 % (21-46); MONOCYTES ABSOLUTE AUTO 0.96 K/mm3 (0.16-1.47); MONOCYTES PERCENT AUTO 11 % (4-13); Mean Corpuscular HGB 29.1 pg (26.0-34.0); Mean Corpuscular HGB Conc 32.9 g/dL (31.5-36.5); Mean Corpuscular Volume 89 fL (80-100); Mean Platelet Volume 9.4 fL (9.1-12.4); NEUTROPHILS PERCENT AUTO 61 % (41-73); Platelet Count 235 K/mm3 (150-400); RDW Coefficient Variation 14.5 % (11.7-14.2); White Blood Cell Count 8.73 K/mm3 (4.00-11.30)
[2024-03-29 13:13] LABS: Albumin/Globulin Ratio 0.8 (0.8-1.8); Bilirubin, Total 0.5 mg/dL (0.1-1.0); Bun/Creatinine Ratio 14.1 (12.0-20.0); Calcium, Blood 9.3 mg/dL (8.5-10.1); Creatinine, Blood 0.99 mg/dL (0.60-1.20); Potassium, Blood 4.5 mmol/L (3.5-5.5)
[2024-03-29 15:22] VITALS: BP 104/63
== END 2024-03-29 15:24 | disposition home or self-care (01) ==
LOC: ER 12:20
PROVIDERS: Emergency Medicine
DX: I48.0 Paroxysmal atrial fibrillation (principal); J44.9 Chronic obstructive pulmonary disease, unspecified; E11.9 Type 2 diabetes mellitus without complications; I11.0 Hypertensive heart disease with heart failure; I50.9 Heart failure, unspecified; I25.2 Old myocardial infarction; N40.0 Benign prostatic hyperplasia without lower urinary tract symptoms; E78.5 Hyperlipidemia, unspecified; K21.9 Gastro-esophageal reflux disease without esophagitis; F17.210 Nicotine dependence, cigarettes, uncomplicated; Z95.5 Presence of coronary angioplasty implant and graft; Z79.899 Other long term (current) drug therapy; Z79.01 Long term (current) use of anticoagulants
CPT/HCPCS: 80053; 83690; 84484; 85025; 93005; 93010; 99285-25

== ENCOUNTER 2024-07-14 10:47 | Emergency (ER) | payer MEDICARE ==
[~2024-07-14] VITALS: Ht 177.8 cm; Wt 102.5 kg
[2024-07-14 11:10] VITALS: BP 141/77
== END 2024-07-14 13:07 | disposition home or self-care (01) ==
LOC: ER 10:47
DX: S46.111A Strain of muscle, fascia and tendon of long head of biceps, right arm, initial encounter (principal); X58.XXXA Exposure to other specified factors, initial encounter; I11.0 Hypertensive heart disease with heart failure; I50.9 Heart failure, unspecified; I25.2 Old myocardial infarction; J44.9 Chronic obstructive pulmonary disease, unspecified; E11.9 Type 2 diabetes mellitus without complications; K21.9 Gastro-esophageal reflux disease without esophagitis; E78.5 Hyperlipidemia, unspecified; F17.210 Nicotine dependence, cigarettes, uncomplicated; Z79.899 Other long term (current) drug therapy; Z79.01 Long term (current) use of anticoagulants
CPT/HCPCS: 76882; 93971; 99283-25

== ENCOUNTER → 2024-07-27 | Outpatient (CLI) | payer MEDICARE | LOC: LAB 12:15 → LAB SHORT 12:15 | DX: B35.1 Tinea unguium (principal) | CPT/HCPCS: 87102; 87106; 87186 ==

== ENCOUNTER 2025-03-30 20:13 | Emergency (ER) | payer MEDICARE ==
[~2025-03-30] VITALS: Ht 177.8 cm; Wt 102.1 kg
[2025-03-30 20:48] LABS: BASOPHILS ABSOLUTE AUTO 0.04 K/mm3 (0.00-0.23); BASOPHILS PERCENT AUTO 1 % (0-2); EOSINOPHILS ABSOLUTE AUTO 0.24 K/mm3 (0.00-0.68); EOSINOPHILS PERCENT AUTO 3 % (0-6); Hematocrit 45.6 % (37.0-53.0); Hemoglobin 15.3 g/dL (13.5-17.5); IMMATURE GRAN ABSOLUTE AUTO 0.02 K/mm3 (0.00-0.10); IMMATURE GRAN PERCENT AUTO 0 % (0-1); LYMPHOCYTES ABSOLUTE AUTO 1.39 K/mm3 (0.84-5.20); LYMPHOCYTES PERCENT AUTO 19 % (21-46); MONOCYTES ABSOLUTE AUTO 0.97 K/mm3 (0.16-1.47); MONOCYTES PERCENT AUTO 13 % (4-13); Mean Corpuscular HGB Conc 33.6 g/dL (31.5-36.5); Mean Corpuscular Volume 93 fL (80-100); NEUTROPHILS ABSOLUTE AUTO 4.59 K/mm3 (1.96-9.15); NEUTROPHILS PERCENT AUTO 63 % (41-73); NRBC ABSOLUTE 0.00 K/mm3 (0.00-0.02); NRBC Auto 0.0 /100 WBC (0.0-0.2); Platelet Count 210 K/mm3 (150-400); RDW Coefficient Variation 13.2 % (11.7-14.2); RDW Standard Deviation 45.3 fL (35.1-46.3)
[2025-03-30 21:14] LABS: Alanine Aminotransfer (ALT/SGP 31.0 U/L (12-78); Albumin, Blood 3.3 g/dL (3.4-5.0); Albumin/Globulin Ratio 0.8 (0.8-1.8); Anion Gap 12.0 mmol/L (3-11); Aspartate Aminotrans (AST/SGOT 27.0 U/L (12-37); Bilirubin, Total 0.4 mg/dL (0.1-1.0); Blood Urea Nitrogen 27.0 mg/dL (8-24); CO2, Blood 20.0 mmol/L (21-32); Calcium, Blood 9.2 mg/dL (8.5-10.1); Chloride, Blood 108.0 mmol/L (98-108); Creatinine, Blood 1.08 mg/dL (0.60-1.20); Globulin, Blood 4.4 g/dL (2.2-4.0); Glucose, Blood 164.0 mg/dL (70-99); Potassium, Blood 4.3 mmol/L (3.5-5.5); Sodium, Blood 136.0 mmol/L (136-145); Total Protein, Blood 7.7 g/dL (6.4-8.2)
[2025-03-31 00:01] VITALS: BP 130/53
== END 2025-03-31 00:15 | disposition home or self-care (01) ==
LOC: ER 20:13
PROVIDERS: Emergency Medicine
DX: R07.89 Other chest pain (principal); J44.9 Chronic obstructive pulmonary disease, unspecified; E78.5 Hyperlipidemia, unspecified; E11.42 Type 2 diabetes mellitus with diabetic polyneuropathy; I11.0 Hypertensive heart disease with heart failure; I50.9 Heart failure, unspecified; I25.2 Old myocardial infarction; K21.9 Gastro-esophageal reflux disease without esophagitis; F17.210 Nicotine dependence, cigarettes, uncomplicated; Z98.890 Other specified postprocedural states; Z95.5 Presence of coronary angioplasty implant and graft; Z95.810 Presence of automatic (implantable) cardiac defibrillator; Z79.02 Long term (current) use of antithrombotics/antiplatelets; Z79.51 Long term (current) use of inhaled steroids; Z79.84 Long term (current) use of oral hypoglycemic drugs; Z79.01 Long term (current) use of anticoagulants; Z79.899 Other long term (current) drug therapy
CPT/HCPCS: 71046; 80053; 84484; 85025; 93005; 93010; 99285-25